=== PATIENT | female | born 1985 | race Caucasian/White ===

== ENCOUNTER → 2021-04-11 | Outpatient (CLI) | payer OTHER ==
[~2021-04-11] MED LIST: ARIP1TAB6 PO; CITA10TA5 PO; LEVO50TA5; LIDOCAINE 1% MDV 20ML VIAL As Ordered ONE; METF10004 PO; PRAZ1CAP PO; VENL37TA; VITMTA PO
[2021-04-11 12:14] VITALS: BP 167/85
--- NOTE | 2021-04-11 12:27 | REP ---
INDICATION: PRE SCAN FOR THYROID COMPARISON: Outside examination dated 01/03/2021 TECHNIQUE: Blackman scale and color evaluation of the thyroid gland using the linear high frequency transducer. FINDINGS: Right thyroid lobe measures 4.5 x 2.1 x 2.6 cm and appears relatively normal. The previously identified small 6.5 x 5.5 x 4.0 mm hypoechoic nodule in the lower pole is not identified on current examination. Left thyroid lobe measures 7.9 x 5.0 x 4.8 cm and includes a somewhat ill-defined complex nodule measuring 5.3 x 4.8 x 4.9 cm with central anechoic areas measuring up to 11 mm diameter. Isthmus measures 8.4 mm in width. IMPRESSION: They complex predominately solid nodule in the left thyroid lobe. <Electronically signed by Levon Irizarry > 04/11/21 0024
--- NOTE | 2021-04-11 17:05 | REP ---
INDICATION: LT THYROID NODULE. COMPARISON: None. TECHNIQUE: The procedure was performed under the direct supervision of Dr. Blackman. Patient has a history of a 5.3 x 4.8 x 4.9 cm ill-defined complex nodule in the left thyroid seen on a previous ultrasound performed earlier today. The risks and benefits of the procedure were explained to the patient and informed consent obtained. The left thyroid nodule was localized using ultrasound guidance. The skin was prepped and draped in a sterile fashion. 7 mL of 1% lidocaine was used as a local anesthetic. Using ultrasound guidance 4 fine-needle aspirations were obtained using 25 gauge needles. Estimated blood loss: Less than 1 mL. The patient tolerated the procedure well and there were no immediate complications. After the appropriate amount to monitor convalescence the patient was discharged from the department. FINDINGS: None IMPRESSION: Ultrasound-guided left thyroid biopsy. <Electronically signed by Ge Delgado > 04/11/21 [id number] <Electronically signed by Silvio Blackman > 04/11/21 [id number]
== END ==
LOC: M IRPRO 10:59
PROVIDERS: ATTEND Nurse Practitioner Family
DX: E04.2 Nontoxic multinodular goiter (principal)

== ENCOUNTER → 2023-02-19 | Outpatient (CLI) | payer OTHER ==
[~2023-02-19] MED LIST changes: +ARIP1TAB10; +ATOR40TA75; +CETI10CH PO; -CITA10TA5 PO; +CITA10TA7 PO; +DULO1CAP6; +ELIQ5TAB; +FLUT1BLS2; +GABA-282; +LANTINJ4; +LEVO100T5; -LIDOCAINE 1% MDV 20ML VIAL As Ordered ONE; +TIRZ5PEN
== END ==
LOC: M SLEEP 20:00
PROVIDERS: ATTEND Nurse Practitioner Family
DX: G47.33 Obstructive sleep apnea (adult) (pediatric) (principal)